=== PATIENT | female | born 1990 | race Caucasian/White ===

== ENCOUNTER 2016-08-02 22:33 | Emergency (ER) | payer OTHER ==
[~2016-08-02] VITALS: Ht 152.4 cm; Wt 54.5 kg
[2016-08-02 22:42] VITALS: Ht 152.4 cm; Wt 54.5 kg
--- NOTE | 2016-08-02 22:47 | ERA ---
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 She denies fever, chills, neck pain, chest pain, abdominal pain. She complains of nausea, vomiting, diarrhea, denied dysuria, constipation. She does not smoke, drink Past medical history: familial Mediterranean fever Past surgical history: None ROS All systems reviewed and are negative except as per history of present illness. Medications Home Meds Active Scripts Ondansetron (Ondansetron Odt) 4 Mg Tab.rapdis, 4 MG PO Q6H Y for NAUSEA AND/OR VOMITING, #10 TAB Prov:NITISH WATERS MD 08/03/16 Reported Medications Ibuprofen* (Ibuprofen*) 200 Mg Capsule, 400 MG PO Q6, CAP 08/02/16 Allergies Allergies: Coded Allergies: No Known Drug Allergies (Verified Allergy, Unknown, 08/02/16) Physical Exam Vitals Vital Signs Date Time Temp Pulse Resp B/P Pulse Ox O2 Delivery O2 Flow Rate FiO2 08/02/16 22:42 98.5 85 20 123/56 100 Physical Exam Const: No acute distress. Head: Atraumatic. Eyes: Normal Conjunctiva. ENT: Normal External Ears, Nose and Mouth. Neck: Full range of motion. No meningismus. Resp: Clear to auscultation bilaterally. Cardio: Regular rate and rhythm, no murmurs. Abd: Soft, non distended, normal bowel sounds, non tender. Skin: No petechiae or rashes. Back: No midline or flank tenderness. Ext: No cyanosis, or edema. Neur: Awake and alert. No focal deficit Psych: Normal Mood and Affect. Result Diagram: 08/02/16 2330 08/02/16 2330 Results 24 hrs Laboratory Tests Test 08/02/16 23:01 08/02/16 23:30 Bedside Urine pH (LAB) 6.0 Bedside Urine Protein (LAB) 2+ Bedside Urine Glucose (UA) Negative Bedside Urine Ketones (LAB) 4+ Bedside Urine Blood Negative Bedside Urine Nitrite (LAB) Negative Bedside Urine Leukocyte Esterase (L Negative White Blood Count 8.510^3/ul Red Blood Count 5.3710^6/ul Hemoglobin 14.2g/dl Hematocrit 42.1% Mean Corpuscular Volume 78.4fl Mean Corpuscular Hemoglobin 26.4pg Mean Corpuscular Hemoglobin Concent 33.7g/dl Red Cell Distribution Width 12.0% Platelet Count 35968^3/UL Mean Platelet Volume 9.9fl Neutrophils % 66.7% Lymphocytes % 24.2% Monocytes % 7.2% Eosinophils % 0.4% Basophils % 0.4% Nucleated Red Blood Cells % 0.4/100WBC Neutrophils # 5.710^3/ul Lymphocytes # 2.110^3/ul Monocytes # 0.610^3/ul Eosinophils # 0.010^3/ul Basophils # 0.010^3/ul Nucleated Red Blood Cells # 0.010^3/ul Sodium Level 141mmol/L Potassium Level 4.2mmol/L Chloride Level 107mmol/L Carbon Dioxide Level 17mmol/L Anion Gap 21 Blood Urea Nitrogen 12mg/dl Creatinine 0.59mg/dl Glucose Level 101mg/dl Calcium Level 10.2mg/dl Total Bilirubin 0.1mg/dl Direct Bilirubin 0.00mg/dl Indirect Bilirubin 0.1mg/dl Aspartate Amino Transf (AST/SGOT) 63IU/L Alanine Aminotransferase (ALT/SGPT) 29IU/L Alkaline Phosphatase 75IU/L Total Protein 9.2g/dl Albumin 5.2g/dl Globulin 4.00g/dl Albumin/Globulin Ratio 1.30 Lipase 101U/L Current Medications Medications (Trade) Dose Ordered Sig/Mike Route PRN Reason Start Time Stop Time Status Last Admin Dose Admin Sodium Chloride (NS) 1,000 ml @ 1,000 mls/hr Q1H STAT IV 08/02/16 22:54 08/02/16 23:53 DC 08/02/16 23:46 Ondansetron HCl (Zofran Inj) 4 mg ONCE STAT IV 08/02/16 22:54 08/02/16 22:55 DC 08/02/16 23:46 Morphine Sulfate (morphine) 2 mg ONCE ONCE IV 08/02/16 23:30 08/02/16 23:31 DC Procedures/MDM MEDICAL MAKING DECISION: The patient is a 25-year-old, presenting to the ER because of vomiting and diarrhea due to adverse effect of Colcichine, acute dehydration. Her abdominal exam is benign. She wanted to with 1 L normal saline for acute clinical dehydration, Zofran IV for nausea and morphine 2 mg IV for her discomfort with good response. On multiple repeat abdominal exams were unremarkable The differential diagnoses considered include but are not limited to cholelithiasis, cholecystitis, cystitis, pancreatitis, hepatitis, gastritis, peptic ulcer disease, gastric ulcer, appendicitis, diverticulitis, cholangitis, choledocholithiasis, partial small bowel obstruction. Departure Diagnosis: Primary Impression: Vomiting Additional Impression: Dehydration Condition: Good Comments She went to stay with Zofran ODT I discussed the findings with the patient. I advised the patient to follow-up with the primary physician in about 1-2 days, sooner if needed and return if any concern. NITISH WATERS MD August 02, 2016 22:47
[2016-08-02] MEDS ORDERED: ONDANSETRON 4 MG INJ IV STA (22:54)
[2016-08-02] MEDS ORDERED: SOD CHLORIDE 0.9% 1,000 ML IV STA (22:54)
[2016-08-02 23:00] LABS: URINE BLOOD (Dip) POC Negative (NEGATIVE)
[2016-08-02] MEDS ORDERED: morphine 2 MG INJ IV ONE (23:30)
[2016-08-02] MEDS ORDERED: IBUP200C PO (23:32)
[2016-08-03 00:18] LABS: ADD SCAN DIFF NO
[2016-08-03 00:19] LABS: BASOPHILS % 0.4 % (0.0-2.0); EOSINOPHILS % 0.4 % (0.0-7.0); HEMATOCRIT 42.1 % (37.0-47.0); HEMOGLOBIN 14.2 g/dl (12.0-16.0); LYMPHOCYTES # 2.1 10^3/ul (0.8-2.9); LYMPHOCYTES % 24.2 % (15.0-51.0); MEAN CORPUSCULAR HEMOGLOBIN 26.4 pg (29.0-33.0); MEAN CORPUSCULAR HGB CONC 33.7 g/dl (32.0-37.0); MEAN CORPUSCULAR VOLUME 78.4 fl (82.0-101.0); MEAN PLATELET VOLUME 9.9 fl (7.4-10.4); MONOCYTE # 0.6 10^3/ul (0.3-0.9); MONOCYTES % 7.2 % (0.0-11.0); NEUTROPHIL # 5.7 10^3/ul (1.6-7.5); NEUTROPHILS % 66.7 % (39.0-77.0); NUCLEATED RED BLOOD CELLS% 0.4 /100WBC (0.0-0.0); PLATELET COUNT 356 10^3/UL (140-415); RED BLOOD COUNT 5.37 10^6/ul (4.20-5.40); WHITE BLOOD COUNT 8.5 10^3/ul (4.8-10.8)
[2016-08-03 01:03] LABS: ALBUMIN 5.2 g/dl (3.3-4.9); ALBUMIN/GLOBULIN RATIO 1.3; BILIRUBIN,INDIRECT 0.1 mg/dl (0-1.1); BILIRUBIN,TOTAL 0.1 mg/dl (0.2-1.3); CALCIUM 10.2 mg/dl (8.4-10.2); CREATININE 0.59 mg/dl (0.44-1.00); POTASSIUM 4.2 mmol/L (3.5-5.1); TOTAL PROTEIN 9.2 g/dl (6.1-8.1)
[2016-08-03] MEDS ORDERED: ONDA4TAB14 PO (01:31)
[2016-08-03 01:35] VITALS: BP 114/59; PULSE 78; RESP 14; TEMP 98.1
== END 2016-08-03 01:35 | disposition home or self-care (01) ==
LOC: E/R 22:33
DX: R11.10 Vomiting, unspecified (principal); R19.7 Diarrhea, unspecified; T50.4X5A Adverse effect of drugs affecting uric acid metabolism, initial encounter
CPT/HCPCS: 36415; 80053; 81003; 83690; 85025; 96374; J2405; J7030; Z7502

== ENCOUNTER 2017-09-03 19:59 | Emergency (ER) | END 2017-09-03 20:56 | disposition left against medical advice (07) ==